=== PATIENT | female | born 1965 | race Caucasian/White ===

== ENCOUNTER 2017-06-11 06:40 | Day surgery (SDC) | payer BC ==
[2017-06-06 12:21] VITALS: BMI 21.9
[~2017-06-11 06:40] MED LIST: HEPARIN SODIUM,PORCINE 5,000 UNIT/ML 1 ML VIAL SQ ONE; HYDROmorphone 0.5 MG/0.5 ML SYRINGE IVP PRN; ONDANSETRON 4 MG/2 ML VIAL IVP ONE; SCOPOLAMINE 1.5MG/72HR PATCH TRANSDERM ONE; ceFAZolin 2 GM in SODIUM CHLORIDE 0.9% 100 ML IVPB ONE
[2017-06-11] MEDS: LIDOCAINE 1% 20 ML VIAL (10MG/ML) FOR IV START INTRADERMA PRN ×2 (07:25→07:30)
[2017-06-11] MEDS: LACTATED RINGERS 1,000 ML IV SCH (07:30)
--- NOTE | 2017-06-11 08:03 | P.GSHP ---
History of Present Illness H&P Date: 06/11/17 Chief Complaint: Right inguinal hernia This is a 51-year-old female who's developed a tender mass in the right groin. She presents today for laparoscopic robotic-assisted repair of right inguinal hernia. Past Medical History Past Medical History: No Reported History Additional Past Medical History / Comment(s): SEASONAL ALLERGIES., RIGHT INGUINAL HERNIA. History of Any Multi-Drug Resistant Organisms: None Reported Past Surgical History: Tubal Ligation, Uterine Ablation Additional Past Surgical History / Comment(s): BONE SPUR LEFT HAND, LEFT INGUINAL HERNIA (03/26/16) Past Anesthesia/Blood Transfusion Reactions: No Reported Reaction, Family History of Problems w/ Anesthesia Additional Past Anesthesia/Blood Transfusion Reaction / Comment(s): MOTHER & SISTER=PONV Smoking Status: Current every day smoker - Past Family History Father Family Medical History: Cancer, Deep Vein Thrombosis (DVT) Additional Family Medical History / Comment(s): THORACIC CANCER Medications and Allergies Home Medications Medication Instructions Recorded Confirmed Type No Known Home Medications [No 05/19/17 06/11/17 History Known Home Medications] Allergies Allergy/AdvReac Type Severity Reaction Status Date / Time cortisone Allergy Unknown Swelling Verified 06/11/17 07:01 Surgical - Exam Vital Signs Temp Pulse Resp BP Pulse Ox 97.8 F 79 16 122/72 99 06/11/17 06:59 06/11/17 06:59 06/11/17 06:59 06/11/17 06:59 06/11/17 06:59 - General well developed, no distress - Eyes PERRL - ENT normal pinna - Neck no masses - Respiratory normal expansion - Cardiovascular Rhythm: regular - Abdomen Abdomen: soft, non tender Hernia: inguinal (Reducible right inguinal hernia) Assessment and Plan Plan: Right inguinal hernia. We'll perform laparoscopic robotic system repair.
[2017-06-11] MEDS ORDERED: ALBUTEROL INHALER 60 PUFF/8 GM INHALER INHALATION ONE (08:09)
[2017-06-11] MEDS ORDERED: SUCCINYLCHOLINE CHLORIDE 100 MG/5 ML SYR IV ONE (08:09)
[2017-06-11] MEDS ORDERED: NEOSTIGMINE 1 MG/ML 10 ML VIAL ONE (08:09)
[2017-06-11] MEDS ORDERED: fentaNYL (PF) 50 MCG/ML 2 ML AMP ONE (08:09)
[2017-06-11] MEDS ORDERED: ROCURONIUM BROMIDE 10 MG/ML 10 ML VIAL IV ONE (08:09)
[2017-06-11] MEDS ORDERED: HYDROmorphone (PF) 1 MG/ML ONE (08:09)
[2017-06-11] MEDS ORDERED: GLYCOPYRROLATE 0.2 MG/ML 2 ML VIAL ONE (08:09)
[2017-06-11] MEDS ORDERED: MIDAZOLAM 2 MG/2 ML VIAL ONE (08:09)
[2017-06-11] MEDS ORDERED: LIDOCAINE 1% INJ 10MG/ML (20 ML MDV) ONE (08:09)
[2017-06-11] MEDS ORDERED: PROPOFOL 10 MG/ML 20 ML VIAL IV ONE (08:09)
[2017-06-11] MEDS ORDERED: BUPIVACAINE (PF) 0.25% 30 ML VIAL SQ ONE (08:44)
[2017-06-11] MEDS ORDERED: LIDOCAINE 2%-EPI 1:100,000 20 ML VIAL SQ ONE (08:44)
[2017-06-11 09:42] VITALS: TEMP 97.2
[2017-06-11] MEDS ORDERED: LACTATED RINGERS 1,000 ML IV ONE (10:56)
[2017-06-11] MEDS ORDERED: HYDROcodone/APAP 7.5-325MG 1 EACH TAB PO ONE (11:30)
[2017-06-11 11:58] VITALS: RESP 16
[2017-06-11 14:47] VITALS: BP 123/70; PULSE 61
--- NOTE | 2017-06-16 16:51 | P.OP ---
Date of Procedure: 06/11/17 Preoperative Diagnosis: Right inguinal hernia Postoperative Diagnosis: Right inguinal hernia Recurrent left inguinal hernia Procedure(s) Performed: Laparoscopic robotic-assisted repair of right inguinal hernia Laparoscopic robotic-assisted repair of recurrent left inguinal hernia Anesthesia: ZABRINA Surgeon: Candido Brown Estimated Blood Loss (ml): 5 Pathology: none sent Condition: stable Disposition: PACU Description of Procedure: The patient's placed on the operating table in the supine position. The patient received general anesthesia. The patient's abdomen was prepped and draped in usual sterile fashion. The skin was anesthetized 1% local Xylocaine at the incision sites. Using an 11 blade a skin incision was made at the umbilicus. The fascia was grasped with a Challenge and then the peritoneal cavity was entered with the Veress needle. Position of the Veress needle was confirmed with a positive drop test. After adequate insufflation a 5 mm trocar was placed into the peritoneal cavity. The Laparoscope was placed the peritoneal cavity. And a robotic 8 mm trocar was placed in the right lateral position and then another 8 mm robotic trochars placed in the left lateral position. The original 5 mm trocar was exchanged for a 12 mm trocar. The patient was placed in reverse Trendelenburg and then the patient was docked to the robot. The patient had a right inguinal hernia. The left side was examined there appeared to be a small recurrent left inguinal hernia. Next the peritoneum over top of the right hernia was incised and then using blunt and sharp dissection and electrocautery the hernia sac was dissected free from the floor of the inguinal canal. The hernia sac was completely reduced into the peritoneal cavity. And then using the Pro lead scientist mesh the hernia was repaired. The peritoneum was then sutured with 20V lock suture. The left recurrent inguinal hernia was repaired in identical fashion. The patient was then undocked the robot. The needle was withdrawn from the peritoneal cavity. The umbilical trocar site was closed with 0 Ethibond suture. The skin was closed interrupted 3-0 Monocryl suture. Dermabond dressing was applied. Patient was sent to recovery in stable condition.
== END 2017-06-11 15:17 | disposition home or self-care (01) ==
LOC: OR 06:40
PROVIDERS: ATTEND Surgery
DX: K40.91 Unilateral inguinal hernia, without obstruction or gangrene, recurrent (principal); F17.200 Nicotine dependence, unspecified, uncomplicated; Z88.8 Allergy status to other drugs, medicaments and biological substances
CPT/HCPCS: 49650; 49651; S2900

== ENCOUNTER → 2017-06-20 | Outpatient (CLI) | payer BC | END | disposition home or self-care (01) | LOC: MMGSC 16:49 | PROVIDERS: ATTEND Family Medicine | DX: R30.0 Dysuria (principal); M54.9 Dorsalgia, unspecified | CPT/HCPCS: 87086 ==

== ENCOUNTER → 2017-10-09 | Outpatient (CLI) | payer BC ==
[2017-10-09 18:40] LABS: ALT 21 U/L (9-52); AST 21 U/L (14-36); Albumin 4.1 g/dL (3.5-5.0); Alkaline Phosphatase 91 U/L (38-126); Anion Gap 9 mmol/L; Blood Urea Nitrogen 16 mg/dL (7-17); Calcium 9.3 mg/dL (8.4-10.2); Carbon Dioxide 27 mmol/L (22-30); Chloride 106 mmol/L (98-107); Cholesterol 236 mg/dL (<200); Glucose 101 mg/dL (74-99); HDL Cholesterol 55 mg/dL (40-60); LDL Cholesterol,Calculated 143 mg/dL (0-99); Sodium 142 mmol/L (137-145); Total Bilirubin 0.2 mg/dL (0.2-1.3); Total Protein 6.8 g/dL (6.3-8.2); Triglycerides 189 mg/dL (<150)
[2017-10-09 18:41] LABS: Basophils # (A) 0.1 k/uL (0-0.2); Basophils % (A) 1 %; Eosinophils # (A) 0.2 k/uL (0-0.7); Eosinophils % (A) 2 %; HCT 43.6 % (34.0-46.0); Lymphocytes # (A) 3.1 k/uL (1.0-4.8); Lymphocytes % (A) 36 %; MCH 29.8 pg (25.0-35.0); MCHC 32.1 g/dL (31.0-37.0); MCV 92.7 fL (80.0-100.0); Mean Platelet Volume 7.4; Monocytes # (A) 0.4 k/uL (0-1.0); Monocytes % (A) 5 %; Neutrophils # (A) 4.6 k/uL (1.3-7.7); Neutrophils % (A) 54 %; Platelet Count 283 k/uL (150-450); RDW 12.5 % (11.5-15.5); WBC 8.6 k/uL (3.8-10.6)
[2017-10-09 18:56] LABS: T4, Free (Free Thyroxine) 0.79 ng/dL (0.78-2.19)
== END | disposition home or self-care (01) ==
LOC: MMGSC 16:51
PROVIDERS: ATTEND Family Medicine
DX: Z00.00 Encounter for general adult medical examination without abnormal findings (principal)
CPT/HCPCS: 36415; 80053; 80061; 84439; 84443; 85025

== ENCOUNTER 2019-07-22 21:32 | Emergency (ER) | payer BC, OTHER ==
[2019-07-22 21:40] VITALS: TEMP 98
[2019-07-22 22:09] LABS: Basophils # (A) 0.1 k/uL (0-0.2); Basophils % (A) 2 %; Eosinophils # (A) 0.1 k/uL (0-0.7); Eosinophils % (A) 1 %; HCT 40.3 % (34.0-46.0); HGB 12.5 gm/dL (11.4-16.0); Lymphocytes # (A) 2.8 k/uL (1.0-4.8); Lymphocytes % (A) 30 %; MCH 28.6 pg (25.0-35.0); MCV 92.2 fL (80.0-100.0); Mean Platelet Volume 6.6; Monocytes # (A) 0.4 k/uL (0-1.0); Monocytes % (A) 5 %; Neutrophils # (A) 5.6 k/uL (1.3-7.7); Neutrophils % (A) 62 %; Platelet Count 266 k/uL (150-450); RBC 4.37 m/uL (3.80-5.40); RDW 12.8 % (11.5-15.5); WBC 9.1 k/uL (3.8-10.6)
[2019-07-22 22:11] LABS: ALT 34 U/L (9-52); AST 41 U/L (14-36); African American GFR (CKD) >90 (>60 ml/min/1.73 sqM); Albumin 3.5 g/dL (3.5-5.0); Alcohol <10 mg/dL; Alkaline Phosphatase 66 U/L (38-126); Anion Gap 4 mmol/L; Blood Urea Nitrogen 12 mg/dL (7-17); Calcium 8.2 mg/dL (8.4-10.2); Carbon Dioxide 25 mmol/L (22-30); Chloride 110 mmol/L (98-107); Glucose 88 mg/dL (74-99); Potassium 3.8 mmol/L (3.5-5.1); Sodium 139 mmol/L (137-145); Total Bilirubin 0.3 mg/dL (0.2-1.3); Total Protein 6.3 g/dL (6.3-8.2)
[2019-07-22 22:17] LABS: INR 0.9 (<1.2); Partial Thromboplastin Time 22.4 sec (22.0-30.0); Prothrombin Time 9.8 sec (9.0-12.0)
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
[2019-07-22] MEDS ORDERED: KETOROLAC 30 MG/ML 1 ML VIAL IVP ONE (22:48)
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
[2019-07-22 23:00] VITALS: BP 116/74; PULSE 77; RESP 18
--- NOTE | 2019-07-22 23:02 | XR ---
EXAMINATION TYPE: XR pelvis AP view DATE OF EXAM: 07/22/2019 COMPARISON: NONE HISTORY: Pain TECHNIQUE: Single view FINDINGS: Pelvic ring is intact. Proximal femurs and hip joints are intact. There is contrast in the urinary bladder. Sacroiliac joints appear intact. There is no evidence of a fracture. IMPRESSION: Normal pelvis.
--- NOTE | 2019-07-22 23:05 | XR ---
EXAMINATION TYPE: XR chest 1V portable DATE OF EXAM: 07/22/2019 COMPARISON: None HISTORY: Chest pain TECHNIQUE: Single frontal view of the chest is obtained. FINDINGS: There is coarsening of the pulmonary interstitial markings. There is mild emphysema in the upper lung cha. Heart size is normal. There are no hilar masses. There is no pneumothorax. Bony t horax is intact. IMPRESSION: Pulmonary emphysema. Mild pulmonary fibrosis. No evidence of traumatic injury.
[2019-07-22 23:35] LABS: Amorphous Sediment,Urine Occasional /hpf; Appearance,Urine Cloudy (Clear); Bilirubin,Urine Negative (Negative); Blood,Urine Negative (Negative); Color,Urine Yellow; Glucose,Urine (UA) Negative (Negative); Hyaline Casts,Urine 1 /lpf (0-2); Ketones,Urine Negative (Negative); Leukocyte Esterase,Urine Negative (Negative); Mucus,Urine Rare /hpf; Nitrite,Urine Negative (Negative); PH, Urine 7.5 (5.0-8.0); Protein,Urine Trace (Negative); RBC,Urine 2 /hpf (0-5); Specific Gravity,Urine 1.043 (1.001-1.035); Squamous Epithelial Cell,Urine 1 /hpf (0-4); Urobilinogen,Urine <2.0 mg/dL (<2.0); WBC,Urine 2 /hpf (0-5)
[2019-07-22 23:43] LABS: Amphetamine Screen,Urine Detected (NotDetected); Barbiturate Screen,Urine Not Detected (NotDetected); Benzodiazepines Screen,Urine Not Detected (NotDetected); Cocaine Screen,Urine Not Detected (NotDetected); Methadone Screen, Urine Not Detected (NotDetected); Opiate Screen,Urine Not Detected (NotDetected); Oxycodone Screen, Urine Not Detected (NotDetected); Phencyclidine Screen,Urine Not Detected (NotDetected); Tricyclic Antidepressant,Urine Not Detected (NotDetected); Urn Cannabinoid Scrn Detected (NotDetected)
== END 2019-07-22 23:38 | disposition home or self-care (01) ==
LOC: EC 21:32
DX: S80.212A Abrasion, left knee, initial encounter (principal); S80.211A Abrasion, right knee, initial encounter; S80.812A Abrasion, left lower leg, initial encounter; S80.811A Abrasion, right lower leg, initial encounter; R07.9 Chest pain, unspecified; F17.200 Nicotine dependence, unspecified, uncomplicated; Z88.8 Allergy status to other drugs, medicaments and biological substances; V43.61XA Car passenger injured in collision with sport utility vehicle in traffic accident, initial encounter; Y92.89 Other specified places as the place of occurrence of the external cause
CPT/HCPCS: 36415; 93005; 86900; 86901; 80053; 84484; 85025; 85610; 85730; 86850; 81001; 80306; 80320; 73560; 72170; 71045; 72125; 70450; 71260; 74177; 99285; 96374; J1885; Q9967

== ENCOUNTER 2019-07-24 07:25 | Emergency (ER) | payer BC, OTHER ==
[2019-07-24] MEDS ORDERED: SODIUM CHLORIDE 0.9% 1,000 ML IV STA (07:32)
[2019-07-24] MEDS ORDERED: KETOROLAC 30 MG/ML 1 ML VIAL IVP STA (07:32)
[2019-07-24] MEDS ORDERED: IPRATROPIUM-ALBUTEROL 3 ML NEB INHALATION STA (07:33)
[2019-07-24] MEDS ORDERED: LORazepam 2 MG/ML INJ IV STA (07:39)
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
[2019-07-24 08:07] LABS: Basophils # (A) 0.2 k/uL (0-0.2); Basophils % (A) 3 %; Eosinophils # (A) 0.3 k/uL (0-0.7); Eosinophils % (A) 3 %; HCT 42.8 % (34.0-46.0); HGB 13.6 gm/dL (11.4-16.0); Lymphocytes # (A) 2.6 k/uL (1.0-4.8); Lymphocytes % (A) 29 %; MCH 29.2 pg (25.0-35.0); MCHC 31.7 g/dL (31.0-37.0); Mean Platelet Volume 6.4; Monocytes # (A) 0.5 k/uL (0-1.0); Monocytes % (A) 5 %; Neutrophils # (A) 5.4 k/uL (1.3-7.7); Neutrophils % (A) 60 %; Platelet Count 276 k/uL (150-450); RBC 4.65 m/uL (3.80-5.40); RDW 12.9 % (11.5-15.5)
[2019-07-24 08:22] LABS: ALT 31 U/L (9-52); AST 29 U/L (14-36); African American GFR (CKD) >90 (>60 ml/min/1.73 sqM); Albumin 3.7 g/dL (3.5-5.0); Alkaline Phosphatase 78 U/L (38-126); Anion Gap 6 mmol/L; Blood Urea Nitrogen 16 mg/dL (7-17); Calcium 9.2 mg/dL (8.4-10.2); Carbon Dioxide 25 mmol/L (22-30); Chloride 111 mmol/L (98-107); Creatine Kinase 108 U/L (30-135); Glucose 103 mg/dL (74-99); INR 0.8 (<1.2); Magnesium 1.9 mg/dL (1.6-2.3); Partial Thromboplastin Time 27.1 sec (22.0-30.0); Potassium 4.5 mmol/L (3.5-5.1); Prothrombin Time 9.4 sec (9.0-12.0); Sodium 142 mmol/L (137-145); Total Bilirubin 0.3 mg/dL (0.2-1.3); Total Protein 6.6 g/dL (6.3-8.2)
[2019-07-24 08:25] LABS: D-Dimer 0.96 mg/L FEU (<0.60)
--- NOTE | 2019-07-24 08:43 | XR ---
EXAMINATION TYPE: XR chest 2V DATE OF EXAM: 07/24/2019 HISTORY: Chest Pain. REFERENCE: Previous study dated 07/22/2019. FINDINGS: There is mild platelike atelectasis at both lung bases. The lungs are otherwise clear. Pleu ral space are clear. The heart is not enlarged. IMPRESSION: PLATELIKE ATELECTASIS, BOTH LUNG BASES.
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
[2019-07-24 10:44] VITALS: BP 116/70; PULSE 75; RESP 18; TEMP 97.3
== END 2019-07-24 09:52 | disposition home or self-care (01) ==
LOC: EC 07:25
DX: S22.32XA Fracture of one rib, left side, initial encounter for closed fracture (principal); M94.0 Chondrocostal junction syndrome [Tietze]; F17.200 Nicotine dependence, unspecified, uncomplicated; Z88.8 Allergy status to other drugs, medicaments and biological substances; V89.2XXA Person injured in unspecified motor-vehicle accident, traffic, initial encounter; Y92.410 Unspecified street and highway as the place of occurrence of the external cause
CPT/HCPCS: 36415; 94640; 93005; 85379; 83880; 80053; 82550; 83690; 83735; 84484; 85025; 85610; 85730; 71046; 71275; 99285; 96374; 96375; 96361 ×3; J2060; J1885; Q9967

== ENCOUNTER → 2020-03-17 | Outpatient (CLI) | payer OTHER ==
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
== END | disposition home or self-care (01) ==
LOC: RADMRIMAIN 11:38
PROVIDERS: ATTEND Orthopaedic Surgery
DX: S82.001A Unspecified fracture of right patella, initial encounter for closed fracture (principal)

== ENCOUNTER 2022-02-06 18:51 | Emergency (ER) | payer OTHER ==
[2022-02-06 20:18] VITALS: BP 132/77; PULSE 77; RESP 18; TEMP 98
--- NOTE | 2022-02-06 21:18 | ED ---
URI HPI - General Chief Complaint: Upper Respiratory Infection Stated Complaint: Covid+/antibodies Time Seen by Provider: 02/06/22 20:56 Source: patient, RN notes reviewed Mode of arrival: ambulatory Limitations: no limitations - History of Present Illness Initial Comments: Patient comes in complaining of body aches, mild cough, nasal congestion, postnasal drainage suggested a. Patient tested positive for COVID-19 at her physician's office. Her physician suggested she come here for the monoclonal antibody. Patient is a cigarette smoker. No other significant past medical history. Patient also complaining of fatigue. Minimal diminished appetite. Able to eat and drink normally. No vomiting. No headache, no changes in vision or hearing, no sore throat or difficulty with speech, no neck pain, no chest pain or shortness of breath, no abdominal pain, no nausea or vomiting, no changes in urination or bowel movements, no numbness or tingling, no extremity pain, no skin rashes or lesions. MD Complaint: fever, cough, nasal congestion - Related Data Previous Rx's Medication Instructions Recorded Ibuprofen [Motrin] 400 mg PO Q4H #30 tab 07/22/19 methocarbamoL [Robaxin] 500 mg PO QID #30 tab 07/22/19 Cyclobenzaprine [Flexeril] 10 mg PO TID #14 tab 07/24/19 Ibuprofen 800 mg PO Q6HR PRN #20 tablet 07/24/19 Albuterol Sulfate [Albuterol 2 puff PO Q6H #8.5 gm 02/06/22 Sulfate Hfa] Allergies Allergy/AdvReac Type Severity Reaction Status Date / Time cortisone Allergy Unknown Swelling Verified 02/06/22 20:17 Review of Systems ROS Statement: Those systems with pertinent positive or pertinent negative responses have been documented in the HPI. ROS Other: All systems not noted in ROS Statement are negative. Past Medical History Past Medical History: No Reported History Additional Past Medical History / Comment(s): SEASONAL ALLERGIES., RIGHT and Left INGUINAL HERNIA. History of Any Multi-Drug Resistant Organisms: None Reported Past Surgical History: Tubal Ligation, Uterine Ablation Additional Past Surgical History / Comment(s): BONE SPUR LEFT HAND, LEFT INGUINAL HERNIA (03/26/16) Past Anesthesia/Blood Transfusion Reactions: No Reported Reaction, Family Histor y of Problems w/ Anesthesia Additional Past Anesthesia/Blood Transfusion Reaction / Comment(s): MOTHER & SISTER=PONV Past Psychological History: No Psychological Hx Reported Past Alcohol Use History: None Reported Past Drug Use History: Marijuana - Past Family History Father Family Medical History: Cancer, Deep Vein Thrombosis (DVT) Additional Family Medical History / Comment(s): THORACIC CANCER General Exam Limitations: no limitations General appearance: alert, in no apparent distress Head exam: Present: atraumatic, normocephalic, normal inspection Eye exam: Present: normal appearance, PERRL, EOMI. Absent: scleral icterus, conjunctival injection, periorbital swelling ENT exam: Present: normal exam, normal oropharynx, mucous membranes dry, mucous membranes moist, normal external ear exam Neck exam: Present: normal inspection, full ROM. Absent: tenderness, meningismus, lymphadenopathy Respiratory exam: Present: normal lung sounds bilaterally. Absent: respiratory distress, wheezes, rales, rhonchi, stridor, chest wall tenderness, accessory muscle use Cardiovascular Exam: Present: regular rate, normal rhythm, normal heart sounds. Absent: systolic murmur, diastolic murmur, rubs, gallop, clicks GI/Abdominal exam: Present: soft, normal bowel sounds. Absent: distended, tenderness, guarding, rebound, rigid Extremities exam: Present: normal inspection, full ROM, normal capillary refill. Absent: tenderness, pedal edema, joint swelling, calf tenderness Back exam: Present: normal inspection Neurological exam: Present: alert, oriented X3, CN II-XII intact Psychiatric exam: Present: normal affect, normal mood Skin exam: Present: warm, dry, intact, normal color. Absent: rash Course Vital Signs 02/06/22 20:13 Temperature 98 F Pulse Rate 77 Respiratory 18 Rate Blood Pressure 132/77 O2 Sat by Pulse 96 Oximetry Medical Decision Making - Medical Decision Making Patient qualified for the monoclonal antibody by BMI. Patient is a cigarette smoker. I did discuss smoking cessation with the patient. Patient received the antibiotic. I did give 1 dose of prednisone but then noted that the patient had a A bands reaction to cortisone. We'll hold any further corticosteroids. Apparently there was swelling. We will treat with albuterol inhaler. Patient was told to return to the ER for any signs or symptoms worsen. Told to return immediately if any other problems arise. All questions answered. Treatment plan discussed. Patient in agreement Every effort has been made to ensure accuracy of this dictation. However, due to the limitations of electronic medical records and dictation devices, errors in charting still occur. SupervisorDr. Jordan - Lab Data Lab Results 02/06/22 Range/Units 20:18 Coronavirus (PCR) Detected A (Not Detectd) Disposition Clinical Impression: COVID-19, Cigarette smoker Disposition: HOME SELF-CARE Condition: Good Instructions (If sedation given, give patient instructions): Coronavirus Disease 2019 (COVID-19), How to Stop Smoking (ED) Additional Instructions: SELF QUARANTINE DISCHARGE: As you are at risk for symptoms due to coronavirus, please stay home and stay away from others as much as possible. Please maintain social distance of 6 feet if possible. You should not return to work until at least 3 days (72 hours) have passed since recovery of symptoms. This defined as resolution of fever without the use of fever reducing medicines and improvement in respiratory symptoms (e.g,, cough, shortness of breath) Isolation can end at least 5 days after symptom onset and after fever ends for 24 hours (without the use of fever-reducing medication) and symptoms are improving, if these people can continue to properly wear a well-fitted mask around others for 5 more days after the 5-day isolation period. If you're still having symptoms at the end of 5 day period, isolate for an additional 5 days. More information about what to do if you are sick can be found on the CDC website at https://www.cdc.gov/coronavirus/2019-ncov/hr-jnc-ujk-sick/recrq-hbtl-xmzo.html Expect the symptoms to last for 7-14 days from onset. Use acetaminophen (Tylenol) as needed for discomfort. You can take a maximum of 1 gram every 6 hours for discomfort, with your total dose in 24 hours not exceeding 4 grams. Be sure to maintain hydration. Drink continuous water and/or items high in vitamin C, such as orange juice and/or lemonade. Unless you have high blood pressure, you may consider Sudafed (which is [id number]) for nasal congestion. I would suggest that a short acting Sudafed rather than the 24 hour Sudafed. For a cough you may take Mucinex or Robitussin. Also consider the use of Vicks Vapor Rub or your chest when you sleep. Use a humidifier that is cleaned frequently, in the bedroom at night. For Nausea /Vomiting/Diarrhea associated with your Illness: o Small frequent sips of room temperature liquids. o Diet: [employer] - If you are still experiencing discomfort and/or nausea please slowly advancing your diet using the BRAT Diet = bananas, rice, apples/apple sauce, toast. o With diarrhea avoid any dairy for 48 hours after symptoms resolved. o Continue with activity as tolerated. If your symptoms do get worse and you believe that the upper respiratory infection has developed into something else, such as pneumonia or severe dehydration, please return to the emergency department or follow-up with your primary care. But expect to be symptomatic for the days as indicated above Prescriptions: Albuterol Sulfate [Albuterol Sulfate Hfa] 2 puff PO Q6H #8.5 gm Is patient prescribed a controlled substance at d/c from ED?: No Referrals: Krystle Sampson MD [Primary Care Provider] - 1-2 days Time of Disposition: 21:51
[2022-02-06] MEDS ORDERED: BEBTELOVIMAB (EUA) 175 MG/2 ML VIAL IV ONE (21:30)
[2022-02-06] MEDS ORDERED: predniSONE 20 MG TAB PO STA (21:59)
== END 2022-02-06 23:03 | disposition home or self-care (01) ==
LOC: EC 18:51
DX: U07.1 COVID-19 (principal); R05.9 Cough, unspecified; R50.9 Fever, unspecified
CPT/HCPCS: 87635; J7512; Q0222

== ENCOUNTER 2025-02-19 18:43 | Inpatient (IN) | payer OTHER ==
[2025-02-19] MEDS ORDERED: NITROGLYCERIN SL TABS 0.4 MG TAB SUBLINGUAL PRN (18:47)
--- NOTE | 2025-02-19 18:47 | ED ---
Chest Pain HPI - General Stated Complaint: NSTEMI Time Seen by Provider: 02/19/25 18:44 Source: old records reviewed Mode of arrival: EMS Limitations: no limitations - History of Present Illness Initial Comments: This is a 59-year-old female to the ER for evaluation of chest pain chest pain dizziness diaphoresis and shortness of breath when she stood up she fell forward hitting her head and presents to the ER with minimal bleeding and abrasion to nose positive head injury, acute ST elevated MD MD Complaint: chest pain, other (Dizziness diaphoresis) -: days(s) Onset: during rest, during exertion Pain Location: substernal Pain Radiation: none Severity: moderate, severe Severity scale (1-10): 7 Quality: tightness, heaviness Consistency: constant Improves With: nothing Anginal Symptoms: diaphoresis, dyspnea, sense of impending doom Other Symptoms: palpitations Treatments Prior to Arrival: none - Related Data Home Medications Medication Instructions Recorded Confirmed Gabapentin [Neurontin] 300 mg PO TID PRN 02/20/25 02/21/25 HYDROcodone/APAP 5-325MG [Miranda 1 tab PO BID PRN 02/20/25 02/21/25 5-325] Previous Rx's Medication Instructions Recorded Aspirin 81 mg PO DAILY tab 02/22/25 Atorvastatin [Lipitor] 80 mg PO DAILY #90 tab 02/22/25 Losartan [Cozaar] 25 mg PO DAILY #90 tab 02/22/25 Nitroglycerin Sl Tabs [Nitrostat] 0.4 mg SUBLINGUAL Q5M PRN #25 tab 02/22/25 Ticagrelor [Brilinta] 90 mg PO BID #180 tab 02/22/25 Allergies Allergy/AdvReac Type Severity Reaction Status Date / Time cortisone Allergy Unknown Swelling Verified 02/20/25 11:43 Review of Systems ROS Statement: Those systems with pertinent positive or pertinent negative responses have been documented in the HPI. ROS Other: All systems not noted in ROS Statement are negative. EKG Findings - EKG Comments: EKG Findings:: EKG sinus bradycardia 53 OH 117 QRS 86 QTc 404 - EKG Results: EKG: interpreted by CECILE Past Medical History Past Medical History: No Reported History Additional Past Medical History / Comment(s): SEASONAL ALLERGIES., RIGHT and Left INGUINAL HERNIA. History of Any Multi-Drug Resistant Organisms: None Reported Past Surgical History: Tubal Ligation, Uterine Ablation Additional Past Surgical History / Comment(s): BONE SPUR LEFT HAND, LEFT INGUINAL HERNIA (03/26/16) Past Anesthesia/Blood Transfusion Reactions: No Reported Reaction, Family History of Problems w/ Anesthesia Additional Past Anesthesia/Blood Transfusion Reaction / Comment(s): MOTHER & SISTER=PONV Past Psychological History: No Psychological Hx Reported Past Alcohol Use History: None Reported Past Drug Use History: Marijuana - Past Family History Father Family Medical History: Cancer, Deep Vein Thrombosis (DVT) Additional Family Medical History / Comment(s): THORACIC CANCER General Exam General appearance: alert, in no apparent distress Head exam: Present: atraumatic, normocephalic, normal inspection Eye exam: Present: normal appearance, PERRL, EOMI. Absent: scleral icterus, conjunctival injection, periorbital swelling ENT exam: Present: normal exam, mucous membranes moist Neck exam: Present: normal inspection. Absent: tenderness, meningismus, lymphadenopathy Respiratory exam: Present: normal lung sounds bilaterally. Absent: respiratory distress, wheezes, rales, rhonchi, stridor Cardiovascular Exam: Present: regular rate, normal rhythm, normal heart sounds. Absent: systolic murmur, diastolic murmur, rubs, gallop, clicks GI/Abdominal exam: Present: soft, normal bowel sounds. Absent: distended, tenderness, guarding, rebound, rigid Extremities exam: Present: normal inspection, full ROM, normal capillary refill. Absent: tenderness, pedal edema, joint swelling, calf tenderness Back exam: Present: normal inspection Neurological exam: Present: alert, oriented X3, CN II-XII intact Psychiatric exam: Present: normal affect, normal mood Skin exam: Present: warm, dry, intact, normal color. Absent: rash Course Vital Signs 02/19/25 02/19/25 02/19/25 18:45 18:48 18:50 Temperature 98 F Pulse Rate 83 48 L Pulse Rate [ 56 L Flight Control Manager ] Respiratory 20 20 Rate Blood Pressure 95/65 100/60 O2 Sat by Pulse 98 96 Oximetry 02/19/25 19:08 Temperature Pulse Rate 57 L Pulse Rate [ Flight Control Manager ] Respiratory 20 Rate Blood Pressure 100/60 O2 Sat by Pulse 98 Oximetry - Reevaluation(s) Reevaluation #1: 02/19/25 19:46 Medical records reviewed 02/19/25 19:[address] elevated MD paged prehospital Reevaluation #2: 02/19/25 19:47 Still with chest pain here in the ER Reevaluation #3: 02/19/25 19:47 Patient will need to get CT scan brain for head injury prior to heparin Reevaluation #4: Was pt. sent in by a medical professional or institution (, [facility], [facility], urgent care, hospital, or residential...) When possible be specific @ -no Did you speak to anyone other than the patient for history (EMS, parent, family, police, friend...)? What history was obtained from this source @ -no Did you review nursing and triage notes (agree or disagree)? Why? @ -agree Are old charts reviewed (outside hosp., previous admission, EMS record, old EKG, old radiological studies, urgent care reports/EKG's, residential records)? Report findings @ -yes Differential Diagnosis (chest pain, altered mental status, abdominal pain women, abdominal pain men, vaginal bleeding, weakness, fever, dyspnea, syncope, headache, dizziness, GI bleed, back pain, seizure, CVA, palpatations, mental health, musculoskeletal)? @ -prior EKG interpreted by me (3pts min.). @ -yes X-rays interpreted by me (1pt min.). @ -yes negative for acute disease CT interpreted by me (1pt min.). @ -Yes negative for acute disease U/S interpreted by me (1pt. min.). @ -no What testing was considered but not performed or refused? (CT, X-rays, U/S, labs)? Why? @ -none What meds were considered but not given or refused? Why? @ -none Did you discuss the management of the patient with other professionals (professionals i.e. [facility], [facility], lab, RT, psych nurse, executive secretary social welfare, bird keeper, teacher, technology officer, window caser)? Give summary @ -no Was smoking cessation discussed for >3mins.? @ -no Was critical care preformed (if so, how long)? @ -yes31 Were there social determinants of health that impacted care today? How? (Homelessness, low income, unemployed, alcoholism, drug addiction, transportation, low edu. Level, literacy, decrease access to med. care, correction, rehab)? @ -none Was there de-escalation of care discussed even if they declined (Discuss DNR or withdrawal of care, Hospice)? DNR status @ -no What co-morbidities impacted this encounter? (DM, HTN, Smoking, COPD, CAD, Cancer, CVA, ARF, Chemo, Hep., AIDS, mental health diagnosis, sleep apnea, morbid obesity)? @ -none Was patient admitted / discharged? Hospital course, mention meds given and route, prescriptions, significant lab abnormalities, going to OR and other pertinent info. @ - 59 female will be admitted for acute ST elevated MD with near syncopal event and head injury Admitted Undiagnosed new problem with uncertain prognosis? @ -no Drug Therapy requiring intensive monitoring for toxicity (Heparin, Nitro, Insulin, Cardizem)? @ -no Were any procedures done? @ -no Diagnosis/symptom? @ -Syncope, STEMI Acute, or Chronic, or Acute on Chronic? @ -Acute Uncomplicated (without systemic symptoms) or Complicated (systemic symptoms)? @ -Complicated Side effects of treatment? @ -no Exacerbation, Progression, or Severe Exacerbation? @ -exacerbation Poses a threat to life or bodily function? How? (Chest pain, USA, MD, pneumonia, PE, COPD, DKA, ARF, appy, cholecystitis, CVA, Diverticulitis, Homicidal, Suicidal, threat to staff... and all critical care pts) @ -yes acute ST elevated MD Reevaluation #5: Differential Chest Pain: Stable Angina, Unstable Angina, STEMI, NSTEMI Aortic Dissection, Pneumothorax, Musculoskeletal, Esophageal Spasm GERD, Cholecystitis, Pancreatitis, Zoster, this is not meant to be an all-inclusive list. - Consultations Consultation #1: Spoke with cardiology aware of ST elevated MD Consultation #2: Spoke with sound who agrees to admit this patient Chest Pain MDM - MDM 59 female will be admitted for acute ST elevated MD with near syncopal event and head injury, CT brain C-spine facial bones negative for acute traumatic injury. Critical Care Time Critical Care Time: Yes Total Critical Care Time: 31 Disposition Clinical Impression: Chest pain, ST elevation myocardial infarction (STEMI), Head injury, Near syncope, Syncope Disposition: ADMITTED IP TO THIS [facility] Condition: Critical Is patient prescribed a controlled substance at d/c from ED?: No Time of Disposition: 19:50
[2025-02-19] MEDS: ASPIRIN 81 MG PO STA (18:51)
[2025-02-19] MEDS: ATORVASTATIN 80 MG TAB PO SCH (18:59)
[2025-02-19 19:01] LABS: Basophils # (A) 0.13 10*3/uL (0.00-0.10); Eosinophils % (A) 1.5 %; HCT 38.5 % (37.2-46.3); HGB 13.1 g/dL (12.0-15.0); Lymphocytes % (A) 49.9 %; MCH 30.5 pg (27.0-32.0); MCV 89.7 fL (80.0-97.0); Mean Platelet Volume 9.6 fL (9.5-12.2); Monocytes # (A) 0.92 10*3/uL (0.20-1.00); Monocytes % (A) 6.9 %; Neutrophils # (A) 5.44 10*3/uL (1.80-7.70); Neutrophils % (A) 40.4 %; Platelet Count 350 10*3/uL (140-440); RBC 4.29 10*6/uL (4.10-5.20); RDW 12.4 % (11.5-14.5); WBC 13.43 10*3/uL (4.50-10.00)
--- NOTE | 2025-02-19 19:03 | XR ---
EXAMINATION TYPE: XR chest 1V portable DATE OF EXAM: 02/19/2025 6:53 PM COMPARISON: Chest radiographs from 07/24/2019 CLINICAL INDICATION: Female, 59 years old with history of chest pain; [facility] TECHNIQUE: XR chest 1V portable Frontal view of the chest. FINDINGS: Lungs/Pleura: Prominent interstitial lung markings are seen scattered throughout the lungs. No eviden ce of focal consolidation, pneumothorax or pleural effusion. Pulmonary vascularity: Unremarkable. Heart/mediastinum: Cardiomediastinal silhouette is unremarkable. Atherosclerotic calcifications are seen in the aorta. Musculoskeletal: No acute osseous pathology. Other findings: None Lines/Tubes: IMPRESSION: Interstitial prominence which could represent pulmonary edema versus fibrotic change. [facility], , 02/19/2025 7:00 PM
[2025-02-19] MEDS: SODIUM CHLORIDE 0.9% 500 ML 500 ML IV STA (19:06)
[2025-02-19] MEDS: MORPHINE SULFATE 4 MG/ML SYRINGE IVP STA (19:07)
[2025-02-19 19:12] LABS: INR 0.9 (<1.2); Partial Thromboplastin Time 23.3 sec (22.0-30.0); Prothrombin Time 10.2 sec (10.0-12.5)
[2025-02-19 19:13] LABS: ALT 18 U/L (4-34); AST 26 U/L (14-36); African American GFR (CKD) >90 (>60 ml/min/1.73 sqM); Albumin 3.9 g/dL (3.5-5.0); Alkaline Phosphatase 83 U/L (38-126); Anion Gap 7 mmol/L; Blood Urea Nitrogen 14 mg/dL (7-17); Calcium 9.8 mg/dL (8.4-10.2); Carbon Dioxide 27 mmol/L (22-30); Chloride 102 mmol/L (98-107); Glucose 111 mg/dL (74-99); Non-African American GFR(CKD) >90 (>60 ml/min/1.73 sqM); Potassium 3.8 mmol/L (3.5-5.1); Sodium 136 mmol/L (137-145); Total Bilirubin 0.3 mg/dL (0.2-1.3); Total Protein 6.4 g/dL (6.3-8.2)
[2025-02-19] MEDS: LIDOCAINE 1% INJ 10MG/ML (20 ML MDV) SQ ONE (19:20)
[2025-02-19] MEDS: VERAPAMIL SYRINGE (5 MG/10 ML) INTRAARTER ONE (19:25)
[2025-02-19] MEDS: HEPARIN SODIUM 1,000 UN/ML (10ML VL) IVP ONE ×2 (19:33→20:08)
[2025-02-19] MEDS: PHENYLEPHRINE-0.9% NACL SYG 1,000 MCG/10 ML SYRINGE IVP ONE (19:35)
[2025-02-19] MEDS: SODIUM CHLORIDE 0.9% IV ONE (19:35)
[2025-02-19] MEDS: NOREPINEPHRINE IV ONE (19:35)
[2025-02-19] MEDS: TICAGRELOR 90 MG TAB PO ONE (19:37)
[2025-02-19] MEDS: fentaNYL (PF) 50 MCG/1 ML VIAL IVP ONE (19:40)
[2025-02-19] MEDS: IV FLUID CONTINUATION 900 ML IV ONE (19:53)
--- NOTE | 2025-02-19 20:00 | CT ---
EXAMINATION TYPE: CT brain cspine wo con, CT facial bones wo con DATE OF EXAM: 02/19/2025 7:15 PM COMPARISON: None. CLINICAL INDICATION: Female, 59 years old with history of fall; STEMI, fall, pain TECHNIQUE: Brain: Multiple axial CT images of the brain were obtained without IV contrast. Cspine: Axial CT images from the skull base to the inferior aspect of T2 we obtained without intraven ous contrast. Coronal and sagittal reformatted images were also reviewed. Facial: Axial imaging of the facial structures with sagittal and coronal reformats. CT DLP: 895.3 (accession [id number]), 638.4 (accession [id number]) mGycm, Automated exposure control for dose reduction was used. FINDINGS: Brain: Extra-axial spaces: No abnormal extra-axial fluid collections. Ventricular system: Within normal limits Cerebral parenchyma: No acute intraparenchymal hemorrhage or mass effect. The thorpe-white junction is well differentiated. Cerebellum: Unremarkable. Mass effect: No evidence of midline shift. Intracranial vasculature: unremarkable Soft tissues: Normal. Calvarium/osseous structures: No depressed skull fracture. Paranasal sinuses and mastoid air cells: Hypoplastic right maxillary sinus. Scattered mucosal thicken ing present. Visualized orbits: Orbital contents are intact. Cervical spine: Fracture: None. Osseous structures: Multilevel degenerative disc disease changes with endplate spurring and disc oste ophyte complex's. There is fusion of the C2 and C3 vertebrae both the vertebral body and posterior el ements. Vertebral alignment: Within normal limits. Spinal canal/Neural Foramina: No evidence of significant spinal canal narrowing. No evidence for sign ificant neural foraminal stenosis. Neck soft tissues: Prevertebral soft tissues are within normal limits. Other: The airway is patent. Centrilobular emphysema changes are seen in the lung apices. Carotid bif urcation calcifications. Facial: There is a nasal bone deformity with overlying soft tissue swelling. There may be a couple im ages. There is a lucency through the nasal bone. Gas is seen within the deep vessels of the neck pres umably from IV access. The orbits and globes appear intact. No periorbital edema identified. IMPRESSION: 1. No acute intracranial process. 2. Soft tissue swelling over the nasal bone with suspected minimally displaced right nasal bone frac ture. 3. No evidence of cervical spine fracture. 4. Mild multilevel degenerative disc disease. 5. 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 Fallon on 02/19/2025 7:[address] Torin Posada. [facility], , 02/19/2025 7:58 PM
[2025-02-19] MEDS: HEPARIN SODIUM,PORCINE 10,000 UNIT in SODIUM CHLORIDE 0.9% 1,000 ML IRRIGATION ONE (20:01)
[2025-02-19] MEDS: HEPARIN SODIUM,PORCINE (1 ML) 2,500 UNIT in SODIUM CHLORIDE 0.9% 250 ML IRRIGATION ONE (20:01)
[2025-02-19] MEDS: IOPAMIDOL-370 100ML BTL IVP ONE (20:28)
[2025-02-19 20:43] LABS: Glucose,Whole Blood 127 mg/dL (70-110)
--- NOTE | 2025-02-19 21:00 | CONS ---
CONSULTATION CHIEF COMPLAINT: Chest pain. HISTORY OF PRESENT ILLNESS: A 59-year-old lady with no significant past medical history, who sees Dr. Linares on a regular basis, comes into hospital with acute inferior wall myocardial infarction. The patient developed sudden onset chest pain, dizziness and had near syncope at home and had a fall. She fell on her face and had epistaxis. I was called 5 minutes before when the EKG was transmitted by the [facility]. The track laborer was activated even before the patient arrived in the ER. I saw her for the first time in the track laborer and she is still having chest discomfort, continues to have ST-segment elevation and she is bradycardic and mildly hypertensive, does not seem to be short of breath. Her EKG reveals ST-segment elevation in the inferior leads. The plan is to perform emergent cardiac catheterization with a view to performing angioplasty. The patient had head injury and had a CT scan of the brain. The ER physician tells us there was no evidence of bleed. We are waiting on the Radiology interpretation. MEDICATIONS: She states none. ALLERGIES: None. FAMILY HISTORY: Negative for premature coronary artery disease. SOCIAL HISTORY: Significant for smoking. There is no history of EtOH abuse or drug abuse. She uses marijuana. REVIEW OF SYSTEMS: review of systems has been performed. Pertinents are as present in history of presenting illness. PHYSICAL EXAMINATION: VITAL SIGNS: Heart rate is 45 beats per minute, blood pressure is 88/62, respiratory rate is 18. NECK: There is no jugular venous distention. CHEST: Reveals good air entry bilaterally. HEART: Reveals first and second heart sounds. No gallop. No murmur. ABDOMEN: Soft. EXTREMITIES: Exam of extremities did not reveal any edema. Her neck is restrained with a collar. LABORATORY DATA: Pending at this time. ASSESSMENT: Acute inferior wall myocardial infarction. PLAN: The patient will undergo emergent cardiac catheterization and angioplasty of the right coronary artery. MMODL / IJN: [id number] /
--- NOTE | 2025-02-19 21:03 | CC ---
CARDIAC CATHETERIZATION REPORT INDICATION: Acute inferior wall myocardial infarction. PROCEDURE NOTE: After obtaining informed consent, left heart catheterization and coronary angiogram were performed via the right radial artery using standard Fabio catheters. The patient was hemodynamically unstable, was hypotensive and had been started on Pernell- Synephrine and Levophed drip. PROCEDURE NOTE: The right radial artery access was obtained using Seldinger technique. Dr. Fallon had obtained vascular access under ultrasonic guidance. A 6-Kazakh sheath was placed in catheters and wires were floated into the ascending aorta under fluoroscopic guidance. FINDINGS: 1. Hemodynamics: Left ventricular end-diastolic pressure 4-6 mm. There is no significant gradient across the aortic valve. 2. Left ventriculogram: Left ventriculogram is not performed. 3. Angiographic Data: a.Right Coronary Artery: Right coronary artery is totally occluded in its proximal portion. b.Left Main Coronary Artery: Left main coronary artery appears calcified, but is free of significant stenosis. Divides into left anterior descending coronary artery and left circumflex coronary artery. LAD shows mild nonobstructive disease as does the circumflex coronary artery. There are [id number] collaterals to the distal RCA. CONCLUSIONS: 1. Cardiogenic shock. 2. Acute occlusion of the right coronary arteries. PLAN: The patient will undergo emergent angioplasty by Dr. Fallon, the on-call peoples[employer] hcm developer. The patient on her presentation had a syncope and fall and had a head injury, had a CT scan of the brain, which per ER physician's interpretation, did not reveal any bleed. MMODL / IJN: [id number] /
[2025-02-19] MEDS: HEPARIN SODIUM 1,000 UN/ML (10ML VL) IV ONE (21:08)
[2025-02-19] MEDS: HEPARIN SOD,PORK IN 0.45% NACL 25,000 UNIT in 0.45% NACL 1 250ML.BAG IV SCH (21:08)
[2025-02-19] MEDS ORDERED: ATROPINE SULFATE 0.1 MG/ML 10ML SYRINGE IV PRN (21:18)
[2025-02-19] MEDS ORDERED: RX INFO: IV CONTRAST WAS GIVEN 1 EACH MISC MISCELLANE PRN (21:18)
[2025-02-19] MEDS ORDERED: ZOLPIDEM 5 MG TAB PO PRN (21:18)
[2025-02-19] MEDS: NICOTINE 21MG/24HR PATCH TRANSDERM SCH (21:40)
[2025-02-19] MEDS: METOPROLOL TARTRATE 25 MG TAB PO SCH (21:40)
[2025-02-19] MEDS: SODIUM CHLORIDE 0.9% 1,000 ML in EMPTY BAG 1 BAG IV SCH (21:40)
--- NOTE | 2025-02-19 22:53 | P.PRCINT ---
Percutaneous Coronary Int. - Percutaneous Coronary Intervention Percutaneous Coronary Intervention: PROCEDURES PERFORMED: Right coronary angiography, PCI RCA with a 2.75 x 23mm XIence TERE, post dilated with a 3.5mm NC balloon, Penumbra aspiration thrombectomy, IVUS RCA INDICATION: Inferior STEMI, NYHA class 4 symptoms CONSENT:I have discussed the risks, benefits and alternative therapies for the above-mentioned procedure and for both sedation/analgesia as well as necessary blood product administration, if indicated, as they pertain to this patient. The patient has indicated understanding and acceptance of the risks and procedures discussed. PROCEDURE: After the risks, benefits and alternatives of the above mentioned procedure explained in detail with the patient, informed consent was obtained. Patient was taken to the catheterization lab and prepped and draped in usual fashion. A 6-[place] sheath had been placed in the right radial artery . Patient was hypotensive with BP in the 70/50's before any angiograms were obtained requiring intermittent vasopressors. The decision was made to perform PCI of the RCA. A 6Fr AL 0.75 guide was used to engage the RCA. A 0.014 BMW wire was inserted into the distal RCA. Penumbra aspiration thrombectomy was performed x 1 run with resultant imrpovement in ST segments. IVUS was performed which showed reference vessel 2.75mm with diffuse disease throughout entire mid to distal RCA and proximally 3.5mm. A 2.75 x 23mm Xience TERE was placed in the mid RCA. The proximal and mid portions of the stent were post dilated with a 3.5mm NC balloon. Final angiograms were performed. Repeat IVUS was performed which showed excellent stent apposition and no dissection. Preintervention there was TAMMY 0 flow and 100% stenosis and post intervention there was TAMMY 3 flow with 0% stenosis. Patient's BP had improved after intervention. The right radial sheath was removed and a TR band was placed with hemostasis achieved. The patient tolerated the procedure well. Patient was transported back to the post catheterization holding area in stable condition. Conscious Sedation: Patient was monitored under the direct supervision of myself for conscious sedation using Versed and fentanyl for a total duration of 24 minutes HEMODYNAMICS: Ao: 95/60, originally 70/50 on presentation SELECTIVE CORONARY ARTERIOGRAPHY: LEFT MAIN: The left main not imaged, see separate report. LEFT ANTERIOR DESCENDING CORONARY ARTERY: LAD not imaged, see separate report LEFT CIRCUMFLEX CORONARY ARTERY: Left circumflex not imaged, see separate report RIGHT CORONARY ARTERY: The right coronary artery is a large caliber vessel which gives off a PDA and PLV branch and is the dominant vessel. There is 100% proximal RCA stenosis with otherwise diffuse 20-30% mid and distal RCA stenosis FINAL IMPRESSION: 1. CAD as described above with 100% RCA stenosis 2. S/p PCI RCA with a 2.75 x 23mm XIence TERE, post dilated with a 3.5mm NC balloon 3. Cardiogenic shock on presentation to the lab support tech, improved after intervention PLAN: 1. Aggressive risk factor modification per most recent ACC/AHA guidelines. 2. Continue dual antiplatelets with aspirin and Brillinta for 12 months 3. Goal LDL < 70 4. Tobacco cessation discussed in detail with patient and patient willing to try. Gave patient information on [place] Quit Line.
--- NOTE | 2025-02-19 23:27 | P.HPIM ---
History of Present Illness H&P Date: 02/19/25 History of present illness; 59-year-old female with no significant past medical history presented to the emergency department for further evaluation of chest pain, dizziness, diaphoresis and shortness of breath. She states that she initially believed that she was having heartburn and took couple of Tums however the pain remained constant. She was at home with her son sitting on the couch, when he noted that she did not look well and stated that he was going to bring her to the emergency department to get further evaluated if she remained this way when he returned from running an errand. The next thing she recalls she was on the floor, having slumped off the couch resulting in an abrasion to her nose. She described the pain as a tightness/heaviness that she rated a 8/10 located substernally with associated palpitations, diaphoresis, dyspnea as well as a sense of impending doom. When seen at bedside, she is in the ICU resting comfortably without any acute complaints. She underwent PCI with the placement of a singular stent in the RCA. Labratory review: - WBCs 13.43, hemoglobin 13.1, hematocrit 38.5, platelet 350; sodium 136, potassium 3.8, bicarb 27, BUN 14, creatinine 0.72, calcium 9.8, magnesium 2.0, total bilirubin 0.3, AST 26, ALT 18, alkaline phosphatase 83 - Troponin 0.065 Imaging: - Chest x-ray done in the ER showed interstitial prominence which could possibly represent pulmonary edema versus fibrotic change - CT brain, C-spine and facial bones show no acute intracranial process, soft tissue swelling over the nasal bone with suspected minimally displaced right nasal bone fracture; no evidence of cervical spine fracture, with mild multilevel degenerative disc disease - EKG done in the ER independently read and interpreted showed heart rate of 53, sinus bradycardia, with noted ST elevations in leads II, III, aVF; QTc 404 Vitals: - On arrival: Blood pressure 150/65, heart rate 83, respiratory 20, SpO2 98% on room air - Most recently: Blood pressure 100/60, heart rate 57, respiratory rate 20, SpO2 98% on room air Patient admitted to internal medicine service REVIEW OF SYSTEMS: Pertinent positives and negatives noted in HPI. The rest of the 14-point review of systems is negative. Physical Exam: General: nontoxic, no distress, appears at stated age Derm: warm, dry, intact Head: atraumatic, normocephalic, symmetric; small well-healing, recent abrasion to the tip of her nose Eyes: EOMI, anicteric sclera Mouth: no lip lesion, mucus membranes moist Cardiovascular: S1 S2 reg, no murmur, rubs, or gallops Lungs: CTA bilateral, no rales, no accessory muscle use Abdominal: soft, non-tender to palpataion, no appreciable organomegaly Extremities: no gross muscle atrophy, no edema, no contractures; small bandage wrapping around right wrist, secondary to right radial approach to PCI Neuro: Alert, Oriented, CNII-XII grossly intact, gait normal Psych: well appearing, appropriate affect Assessment and plan 59-year-old female with no significant past medical history presented to the emergency department for further evaluation of chest pain, dizziness, diaphoresis and shortness of breath. #Acute STEMI - EKG done in the ER independently read and interpreted showed heart rate of 53, sinus bradycardia, with noted ST elevations in leads II, III, aVF; QTc 404 - STEMI alert was called and she was taken to [facility] for PCI; patient received 1 stent to the RCA - Received 180 mg loading dose of Brilinta prior to PCI; will continue with 90 mg twice daily - Continue with aspirin 81 mg daily, metoprolol tartrate 25 mg twice daily and Lipitor 80 mg daily - Cardiology following #Nicotine dependence - She is a current 1/2 pack per day smoker - Counseled on the importance of smoking cessation - Nicotine 21 mg/24-hour patch GI prophylaxis:None DVT prophylaxis: Lovenox 40 mg SQ daily The patient is admitted with an anticipated more than than 2 midnight stay for evaluation of STEMI s/p PCI. CODE STATUS: Full code Discussed with: Patient Anticipated discharge place: Home Dictation was produced using Loco2 dictation software. please excuse any grammatical, word or spelling errors. Arnulfo Noe MD PGY-1 IM I have seen and evaluated the patient today. I Discussed the case with the resident and agree with the resident's findings I edited the assessment and plan as necessary as documented in the resident's note. Past Medical History Past Medical History: No Reported History Additional Past Medical History / Comment(s): SEASONAL ALLERGIES., RIGHT and Left INGUINAL HERNIA. History of Any Multi-Drug Resistant Organisms: None Reported Past Surgical History: Tubal Ligation, Uterine Ablation Additional Past Surgical History / Comment(s): BONE SPUR LEFT HAND, LEFT INGUINAL HERNIA (03/26/16) Past Anesthesia/Blood Transfusion Reactions: No Reported Reaction, Family History of Problems w/ Anesthesia Additional Past Anesthesia/Blood Transfusion Reaction / Comment(s): MOTHER & SISTER=PONV Past Psychological History: No Psychological Hx Reported Past Alcohol Use History: None Reported Past Drug Use History: Marijuana - Past Family History Father Family Medical History: Cancer, Deep Vein Thrombosis (DVT) Additional Family Medical History / Comment(s): THORACIC CANCER Medications and Allergies Home Medications Medication Instructions Recorded Confirmed Type Ibuprofen 800 mg PO Q6HR PRN #20 tablet 07/24/19 02/20/25 Rx Gabapentin [Neurontin] 300 mg PO TID PRN 02/20/25 02/20/25 History HYDROcodone/APAP 5-325MG [[place] 1 tab PO BID PRN 02/20/25 02/20/25 History 5-325] Unknown Lidocaine Combination Cream 1 applic TOPICAL DIRECTED PRN 02/20/25 02/20/25 History Allergies Allergy/AdvReac Type Severity Reaction Status Date / Time cortisone Allergy Unknown Swelling Verified 02/20/25 11:43 Physical Exam Vitals: Vital Signs Temp Pulse Pulse Resp BP Pulse Ox 02/19/25 20:50 94.7 F L 63 6 L 127/81 95 02/19/25 20:43 83 11 L 02/19/25 19:08 57 L 20 100/60 98 02/19/25 18:50 56 L 02/19/25 18:48 48 L 20 100/60 96 02/19/25 18:45 98 F 83 20 95/65 98 Intake and Output 02/19/25 02/19/25 02/19/25 06:59 14:59 22:59 Intake Total 713 Balance 713 Intake: IV 713 Other: Weight 54.431 kg Results CBC & Chem 7: 02/20/25 05:15 02/20/25 05:15 Labs: Abnormal Lab Results - Last 24 Hours (Table) 02/19/25 02/19/25 02/19/25 Range/Units 18:30 18:30 18:30 WBC 13.43 H (4.50-10.00) 10*3/uL Lymphocytes # 6.70 H (0.90-5.00) 10*3/uL Basophils # 0.13 H (0.00-0.10) 10*3/uL Sodium 136 L (137-145) mmol/L Glucose 111 H (74-99) mg/dL POC Glucose (mg/dL) (70-110) mg/dL Troponin I 0.065 H* (0.000-0.034) ng/mL 02/19/25 Range/Units 20:42 WBC (4.50-10.00) 10*3/uL Lymphocytes # (0.90-5.00) 10*3/uL Basophils # (0.00-0.10) 10*3/uL Sodium (137-145) mmol/L Glucose (74-99) mg/dL POC Glucose (mg/dL) 127 H (70-110) mg/dL Troponin I (0.000-0.034) ng/mL
[2025-02-20] MEDS: MAG HYDROX/AL HYDROX/SIMETH 30 ML CUP PO PRN (00:59)
[2025-02-20 06:11] LABS: Basophils # (A) 0.06 10*3/uL (0.00-0.10); Basophils % (A) 0.5 %; Eosinophils # (A) 0.08 10*3/uL (0.04-0.35); Eosinophils % (A) 0.7 %; HCT 37.1 % (37.2-46.3); Lymphocytes # (A) 3.95 10*3/uL (0.90-5.00); Lymphocytes % (A) 32.8 %; MCH 29.6 pg (27.0-32.0); MCHC 32.3 g/dL (32.0-37.0); MCV 91.4 fL (80.0-97.0); Mean Platelet Volume 9.8 fL (9.5-12.2); Monocytes # (A) 0.91 10*3/uL (0.20-1.00); Monocytes % (A) 7.6 %; Neutrophils # (A) 6.99 10*3/uL (1.80-7.70); Neutrophils % (A) 58.1 %; Platelet Count 296 10*3/uL (140-440); RBC 4.06 10*6/uL (4.10-5.20); RDW 12.7 % (11.5-14.5); WBC 12.03 10*3/uL (4.50-10.00)
[2025-02-20 06:32] LABS: African American GFR (CKD) >90 (>60 ml/min/1.73 sqM); Anion Gap 3 mmol/L; Blood Urea Nitrogen 13 mg/dL (7-17); Calcium 9.6 mg/dL (8.4-10.2); Carbon Dioxide 29 mmol/L (22-30); Chloride 105 mmol/L (98-107); Glucose 101 mg/dL (74-99); Non-African American GFR(CKD) >90 (>60 ml/min/1.73 sqM); Potassium 4.4 mmol/L (3.5-5.1); Sodium 137 mmol/L (137-145)
[2025-02-20] MEDS: ENOXAPARIN 40 MG/0.4 ML SYRINGE SQ SCH (08:52)
[2025-02-20] MEDS: ASPIRIN 81 MG PO SCH (08:52)
[2025-02-20] MEDS: TICAGRELOR 90 MG TAB PO SCH (08:52)
[2025-02-20] MEDS ORDERED: ASPIRIN 325 MG TAB PO SCH (09:00)
[2025-02-20 09:31] LABS: Chol/HDL Ratio 5.42 Ratio; LDL Cholesterol,Calculated 123.3 mg/dL (0.0-131.0)
[2025-02-20] MEDS: METOPROLOL TARTRATE 12.5 MG TAB PO SCH (09:32)
--- NOTE | 2025-02-20 09:33 | PN ---
PROGRESS NOTE FOLLOWUP NOTE SUBJECTIVE: A 59-year-old lady, who presented to hospital yesterday with acute inferior wall myocardial infarction, underwent emergent cardiac catheterization and angioplasty of the totally occluded proximal right coronary artery. She had a fall and had soft tissue injury to her face, however, a CT scan of the head did not reveal any acute intracranial process. The patient has a minor injury to the nose, which is to be addressed by the primary care physician. This morning, the patient is doing well and is free of symptoms. OBJECTIVE: VITAL SIGNS: Heart rate is around 50 beats per minute, blood pressure is 125/78, respiratory rate 18, and O2 saturation is 96%. NECK: There is no jugular venous distention. Carotid upstroke is normal. There is no bruit. CHEST: Reveals good air entry bilaterally. HEART: Reveals first and second heart sounds. No gallop. No murmur. ABDOMEN: Soft. EXTREMITIES: Exam of extremities did not reveal any edema. Peripheral pulses are felt. LABORATORY DATA: Show that the hemoglobin is 12, platelet count is 296. Potassium is 4.4, creatinine is 0.5. Troponin was 0.06, 7.6 and 26. ASSESSMENT: Acute inferior wall myocardial infarction, status post catheterization and angioplasty. PLAN: We will cut back on the dose of metoprolol, transfer her out of ICU, obtain a 2D echo in the morning. ELLIE / TAIWON: [id number] /
--- NOTE | 2025-02-20 10:49 | P.PN ---
Subjective Progress Note Date: 02/20/25 59 year old F with no significant PMH presents to the ED for chest pain. She underwent extensive evaluation in the ED. Blood pressure 150/65, heart rate 83, respiratory 20, SpO2 98% on room air. WBCs 13.43, hemoglobin 13.1, hematocrit 38.5, platelet 350; sodium 136, potassium 3.8, bicarb 27, BUN 14, creatinine 0.72, calcium 9.8, magnesium 2.0, total bilirubin 0.3, AST 26, ALT 18, alkaline phosphatase 83. Troponin 0.065, 7.62, 26.3. Chest x-ray done in the ER showed interstitial prominence which could possibly represent pulmonary edema versus fibrotic change. CT brain, C-spine and facial bones show no acute intracranial process, soft tissue swelling over the nasal bone with suspected minimally disp laced right nasal bone fracture; no evidence of cervical spine fracture, with mild multilevel degenerative disc disease. EKG done in the ER showed heart rate of 53, sinus bradycardia, with noted ST elevations in leads II, III, aVF; QTc 404. Patient was started on heparin drip and taken to the [facility]. She underwent cardiac cath and TERE in the RCA. 02/20 Patient was seen and examined. Reports no chest pain. CBC and BMP significant for WBC 12.03, RBC 4.06, Hct 37.1, glu 101. Lipid panel TG 256, T. Chol 214, LDL 123, HDL 39.5. General: no distress, appears at stated age Derm: warm, dry Head: atraumatic, normocephalic, symmetric Mouth: no lip lesion, mucus membranes moist Cardiovascular: S1S2 johnnie. No murmurs. Lungs: Decreased BS bilaterally, no accessory muscle use Ext: no gross muscle atrophy, no edema, no contractures Neuro: No focal neurologic deficits. Psych: Alert and oriented. Based on my assessment of this patient, this patient meets a high complexity level of care. STEMI: ASA 81 mg PO QD. Lipitor 80 mg PO QD. Brilinta 90 mg PO BID. Metoprolol 12.5 mg PO BID. Obtain Echo. Telemetry monitoring. Cardiology on board. Sinus bradycardia: Likely due to RCA involvement. Monitor while on Metoprolol. Cardiology on board. Leukocytosis: Likely reactive with no signs of active infection. Monitor fever profile. Dyslipidemia: Lipitor as above. Nicotine dependence: Advised to quit. Nicotine patch if needed. CODE STATUS: FULL CODE DVT Prophylaxis: Lovenox SQ GI Prophylaxis: Designated medical POA if patient is not able to make medical decisions for themselves: I have reviewed the following web consultant notes: Cardiac cath note. I have reviewed the results of the following tests: CBC, BMP, Lipid. I have ordered the following tests: I have discussed the care of this patient with the following independent historian: I have independently interpreted the following test below: I have discussed the management of this patient with the following physician: Objective - Vital Signs Vital signs: Vital Signs Temp 98 F 02/20/25 09:03 Pulse 55 L 02/20/25 10:00 Resp 22 02/20/25 10:00 BP 109/88 02/20/25 10:00 Pulse Ox 93 L 02/20/25 10:00 FiO2 Intake & Output 02/19/25 02/20/25 02/20/25 18:59 06:59 18:59 Intake Total 1023 615 Output Total 550 500 Balance 473 115 Weight 54.431 kg 55.3 kg Intake: IV 1023 75 Sodium Chloride 0.9% 1, 310 75 000 ml In Empty Bag 1 bag @ 1 ML/KG/HR 54.431 mls/ hr IV .[id number] JOHN Rx#: [id number] Oral 540 Output: Urine 550 500 Other: Voiding Method Bedside Commode Toilet # Voids 0 0 - Labs CBC & Chem 7: 02/20/25 05:15 02/20/25 05:15 Labs: Abnormal Lab Results - Last 24 Hours (Table) 02/19/25 02/19/25 02/19/25 Range/Units 18:30 18:30 18:30 WBC 13.43 H (4.50-10.00) 10*3/uL RBC (4.10-5.20) 10*6/uL Hct (37.2-46.3) % Lymphocytes # 6.70 H (0.90-5.00) 10*3/uL Basophils # 0.13 H (0.00-0.10) 10*3/uL Sodium 136 L (137-145) mmol/L Glucose 111 H (74-99) mg/dL POC Glucose (mg/dL) (70-110) mg/dL Troponin I 0.065 H* (0.000-0.034) ng/mL Triglycerides (0.00-149.00) mg/dL Cholesterol (0.00-200.00) mg/dL VLDL Cholesterol, Calc (5.00-40.00) mg/dL HDL Cholesterol (40.00-60.00) mg/dL 02/19/25 02/19/25 02/20/25 Range/Units 20:42 21:28 00:37 WBC (4.50-10.00) 10*3/uL RBC (4.10-5.20) 10*6/uL Hct (37.2-46.3) % Lymphocytes # (0.90-5.00) 10*3/uL Basophils # (0.00-0.10) 10*3/uL Sodium (137-145) mmol/L Glucose (74-99) mg/dL POC Glucose (mg/dL) 127 H (70-110) mg/dL Troponin I 7.620 H* 26.300 H* (0.000-0.034) ng/mL Triglycerides (0.00-149.00) mg/dL Cholesterol (0.00-200.00) mg/dL VLDL Cholesterol, Calc (5.00-40.00) mg/dL HDL Cholesterol (40.00-60.00) mg/dL 02/20/25 02/20/25 02/20/25 Range/Units 05:15 05:15 05:15 WBC 12.03 H (4.50-10.00) 10*3/uL RBC 4.06 L (4.10-5.20) 10*6/uL Hct 37.1 L (37.2-46.3) % Lymphocytes # (0.90-5.00) 10*3/uL Basophils # (0.00-0.10) 10*3/uL Sodium (137-145) mmol/L Glucose 101 H (74-99) mg/dL POC Glucose (mg/dL) (70-110) mg/dL Troponin I (0.000-0.034) ng/mL Triglycerides 256.00 H (0.00-149.00) mg/dL Cholesterol 214.00 H (0.00-200.00) mg/dL VLDL Cholesterol, Calc 51.20 H (5.00-40.00) mg/dL HDL Cholesterol 39.50 L (40.00-60.00) mg/dL
--- NOTE | 2025-02-21 12:35 | CA ---
Transthoracic Echo Report Name: Abby Edmondson Age: 59 Gender: F : 1965 Exam Date: 02/21/2025 10:07 Exam Location: [facility] Ht (in): 59 Wt (lb): 121 Ordering Physician: Kaity Saleh Attending/Referring Phys: [id number], [employer] Luly Peters RDCS Procedure CPT: Indications: stemi Cardiac Hx: Stent x1 Technical Quality: Good Contrast 1: Total Dose (mL): Contrast 2: Total Dose (mL): MEASUREMENTS (Male / Female) Normal Values 2D ECHO LV Diastolic Diameter PLAX 4.3 cm 4.2 - 5.9 / 3.9 - 5.3 cm LV Systolic Diameter PLAX 2.9 cm IVS Diastolic Thickness 0.8 cm 0.6 - 1.0 / 0.6 - 0.9 cm LVPW Diastolic Thickness 1.0 cm 0.6 - 1.0 / 0.6 - 0.9 cm LV Relative Wall Thickness 0.4 LVOT Diameter 2.0 cm Aortic Root Diameter 2.8 cm LV Diastolic Volume MOD BP 61.9 cm??? 67 - 155 / 56 - 104 cm??? LV Systolic Volume MOD BP 24.2 cm??? 22 - 58 / 19 - 49 cm??? LV Ejection Fraction MOD BP 60.9 % >= 55 % LV Cardiac Index MOD BP 1434.8 cm???/min???m??? LV Diastolic Volume MOD 4C 65.7 cm??? LV Systolic Volume MOD 4C 25.6 cm??? LV Ejection Fraction MOD 4C 61.1 % LV Cardiac Index MOD 4C 1528.3 cm???/min???m??? LV Diastolic Length 4C 7.4 cm LV Systolic Length 4C 5.9 cm LV Diastolic Volume MOD 2C 55.0 cm??? LV Systolic Volume MOD 2C 20.7 cm??? LV Ejection Fraction MOD 2C 62.3 % LV Cardiac Index MOD 2C 1304.9 cm???/min???m??? LV Diastolic Length 2C 6.9 cm LV Systolic Length 2C 5.3 cm Ascending Aorta Diameter 2.9 cm DOPPLER AV Peak Velocity 155.0 cm/s AV Peak Gradient 9.6 mmHg AV Mean Velocity 94.8 cm/s AV Mean Gradient 4.2 mmHg AV Velocity Time Integral 30.0 cm LVOT Peak Velocity 103.5 cm/s LVOT Peak Gradient 4.3 mmHg LVOT Velocity Time Integral 20.4 cm LVOT Stroke Volume 64.7 cm??? LVOT Stroke Volume Index 43.4 ml/m??? LVOT Cardiac Index 2461.7 cm???/min???m??? AV Area Cont Eq vti 2.2 cm??? AV Area Cont Eq pk 2.1 cm??? Mitral E Point Velocity 54.6 cm/s Mitral A Point Velocity 48.1 cm/s Mitral E to A Ratio 1.1 MV Deceleration Time 176.1 ms MV E' Velocity 5.4 cm/s Mitral E to MV E' Ratio 10.0 TR Peak Velocity 239.6 cm/s TR Peak Gradient 23.0 mmHg Right Atrial Pressure 5.0 mmHg Pulmonary Artery Systolic Pressu 28.0 mmHg Right Ventricular Systolic Press 28.0 mmHg PV Peak Velocity 82.1 cm/s PV Peak Gradient 2.7 mmHg FINDINGS Left Ventricle Left ventricular ejection fraction is estimated at 55-60 %. Left ventricular cavity size normal. Left ventricular wall thickness normal. No obvious regional wall motion abnormalities. Right Ventricle Normal right ventricular size and function. Right ventricular systolic pressure within normal limits. Right Atrium Normal right atrial size. Left Atrium Normal left atrial size. Mitral Valve Structurally normal mitral valve. No evidence for mitral valve prolapse. No mitral stenosis. Mild mitral regurgitation. Aortic Valve Trileaflet aortic valve. No aortic valve stenosis or regurgitation. Tricuspid Valve Structurally normal tricuspid valve. No tricuspid stenosis. Mild tricuspid regurgitation. Pulmonic Valve Pulmonic valve not well visualized. No pulmonic stenosis. No pulmonic regurgitation. Pericardium No pericardial effusion. Echo free space anterior to the right ventricle likely represents a fat pad. Aorta Normal size aortic root and proximal ascending aorta. CONCLUSIONS Left ventricular ejection fraction 55 to 60% RVSP 28 Mild mitral regurgitation Mild tricuspid regurgitation No pericardial effusion Previewed by: Dr. Vaibhav Fallon DO (Electronically Signed) Final Date: 21 February 2025 12:34
--- NOTE | 2025-02-21 12:52 | P.PN ---
Subjective Progress Note Date: 02/21/25 This is a 59-year-old female presented to the hospital with acute inferior wall myocardial infarction and underwent emergent cardiac catheterization and angioplasty of a totally occluded proximal right coronary artery. Patient did have a fall with soft tissue injury to her face. CAT scan of the head did not reveal any acute intracranial process. Patient has been transferred out of the intensive care unit seen today on the cardiac stepdown unit. She denies chest pain or chest pressure. She denies shortness of breath. No lightheadedness or dizziness. She does state that the nurse came in to see her last night because it was reported her heart rate was in the 30s. Patient was asymptomatic. Y beta-gale was cut in half. Upon review, patient did have some bradycardia and a 2.5-second pause. Blood pressure 143/79, heart rate 62, pulse ox 98% on room air. Echocardiogram is pending. Physical examination: Gen: This is a 59-year-old female in no acute distress VS: reviewed HEENT: Significant ecchymosis to the face, normocephalic. Pupils equal, round. Sclerae is anicteric. NECK: Supple. No JVD. Carotid upstroke is normal. No bruit. LUNGS: Good air entry bilaterally. No intercostal retractions. HEART: Regular rate and rhythm. No murmur. No gallop. ABDOMEN: Soft EXTREMITIES: No pedal edema. Dorsalis pedis palpable bilaterally NEUROLOGICAL: Patient is awake, alert and oriented x3. Assessment: Acute inferior wall myocardial infarction s/p cardiac catheterization in angioplasty of the RCA Plan: Continue patient on: Aspirin 81 mg daily, atorvastatin 80 mg daily, Brilinta 90 mg twice daily Continue patient on atorvastatin 80 mg daily with LDL goal less than 70 Discontinue metoprolol due to bradycardia and sinus pauses Smoking cessation. Continue patient on nicotine patch and she will be provided the [place] quit line information at discharge Obtain 2-D echocardiogram and Doppler study to assess cardiac structure and function Further recommendations to follow based upon clinical course Nurse practitioner note has been reviewed, I agree with documented findings and plan of care. Patient was seen and examined. Objective - Vital Signs Vital signs: Vital Signs Temp 97.6 F 02/21/25 04:00 Pulse 55 L 02/21/25 04:00 Resp 18 02/21/25 04:00 BP 136/78 02/21/25 04:00 Pulse Ox 95 02/21/25 04:00 FiO2 Intake & Output 02/20/25 02/21/25 02/21/25 18:59 06:59 18:59 Intake Total 855 20 Output Total 500 Balance 355 20 Weight 51.1 kg Intake: IV 75 20 Invasive Line 2 20 Sodium Chloride 0.9% 1, 75 000 ml In Empty Bag 1 bag @ 1 ML/KG/HR 54.431 mls/ hr IV .[id number] [facility] Rx#: [id number] Oral 780 Output: Urine 500 Other: Voiding Method Toilet Toilet # Voids 1 1 - Labs CBC & Chem 7: 02/20/25 05:15 02/20/25 05:15 Labs: Abnormal Lab Results - Last 24 Hours (Table) 02/20/25 Range/Units 05:15 Triglycerides 256.00 H (0.00-149.00) mg/dL Cholesterol 214.00 H (0.00-200.00) mg/dL VLDL Cholesterol, Calc 51.20 H (5.00-40.00) mg/dL HDL Cholesterol 39.50 L (40.00-60.00) mg/dL
[2025-02-21 15:30] VITALS: BMI 22.7
--- NOTE | 2025-02-21 15:54 | P.PN ---
Subjective Progress Note Date: 02/21/25 Hospital Course: 59 year old F with no significant PMH presents to the ED for chest pain. She u nderwent extensive evaluation in the ED. Blood pressure 150/65, heart rate 83, respiratory 20, SpO2 98% on room air. WBCs 13.43, hemoglobin 13.1, hematocrit 38.5, platelet 350; sodium 136, potassium 3.8, bicarb 27, BUN 14, creatinine 0.72, calcium 9.8, magnesium 2.0, total bilirubin 0.3, AST 26, ALT 18, alkaline phosphatase 83. Troponin 0.065, 7.62, 26.3. Chest x-ray done in the ER showed interstitial prominence which could possibly represent pulmonary edema versus fibrotic change. CT brain, C-spine and facial bones show no acute intracranial process, soft tissue swelling over the nasal bone with suspected minimally displaced right nasal bone fracture; no evidence of cervical spine fracture, with mild multilevel degenerative disc disease. EKG done in the ER showed heart rate of 53, sinus bradycardia, with noted ST elevations in leads II, III, aVF; QTc 404. 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 She underwent cardiac cath and TERE in the RCA. Lipid panel TG 256, T. Chol 214, LDL 123, HDL 39.5.. Started on Brilinta 90 mg twice daily, continued on aspirin 81 mg daily, atorvastatin 80 mg daily, her metoprolol was discontinued due to bradycardia and sinus pauses. TTE showed EF of 55 to 60%, RVSP 28, mild MR and TR. 02/21: Seen and examined at bedside, denies chest pain, shortness of breath, ambulates independently, has adequate oral intake. Possible discharge within the next 24 hours. Heart rate in 50s, blood pressure 133/77. Discussed with RN Pertinent positives and negatives as discussed above, a complete review of systems was performed and all other systems are negative. Vitals Signs Reviewed. General: [nontoxic], [no distress], [appears at stated age] Derm: [warm], [dry] Head: [Bruising and ecchymosis to the face] Eyes: [EOMI], [no lid lag], [anicteric sclera] Mouth: [no lip lesion], [mucus membranes moist] Cardiovascular: [S1S2 reg], [no murmur] Lungs: [CTA bilateral], [no rhonchi, no rales] , [no accessory muscle use] Abdominal: [soft], [ nontender to palpation], [no guarding], [no appreciable organomegaly] Ext: [no gross muscle atrophy], [no edema], [no contractures] Neuro: [ CN II-XI grossly intact], [no focal neuro deficits] Psych: [Alert], [oriented], [appropriate affect] Assessment and Plan: STEMI -ASA 81 mg PO QD. Lipitor 80 mg PO QD. Brilinta 90 mg PO BID -Metoprolol 12.5 mg PO BID was discontinued due to sinus pauses. - TTE as above -Telemetry monitoring. Cardiology on board. Sinus bradycardia and sinus pauses: Likely due to RCA involvement. Metoprolol discontinued. Cardiology on board. Leukocytosis: Likely reactive with no signs of active infection. Monitor fever profile. Dyslipidemia: Lipitor as above. Nicotine dependence: Advised to quit. Nicotine patch if needed. CODE STATUS: FULL CODE DVT Prophylaxis: Lovenox SQ Anticipated discharge place: Home Anticipated discharge time: 02/22 Objective - Vital Signs Vital signs: Vital Signs Temp 97.8 F 02/21/25 12:00 Pulse 56 L 02/21/25 14:00 Resp 18 02/21/25 14:00 BP 133/77 02/21/25 12:00 Pulse Ox 98 02/21/25 12:00 FiO2 Intake & Output 02/20/25 02/21/25 02/21/25 18:59 06:59 18:59 Intake Total 855 20 20 Output Total 500 Balance 355 20 20 Weight 51.1 kg 51.1 kg Intake: IV 75 20 20 Invasive Line 2 20 20 Sodium Chloride 0.9% 1, 75 000 ml In Empty Bag 1 bag @ 1 ML/KG/HR 54.431 mls/ hr IV .[id number] [facility] Rx#: [id number] Oral 780 Output: Urine 500 Other: Voiding Method Toilet Toilet Toilet # Voids 1 1 1 - Labs CBC & Chem 7: 02/20/25 05:15 02/20/25 05:15
[2025-02-22 07:43] VITALS: BP 146/82; PULSE 68; RESP 18; TEMP 97.4
[2025-02-22] MEDS: LOSARTAN 25 MG TAB PO SCH (09:52)
--- NOTE | 2025-02-22 11:08 | P.PN ---
Subjective Progress Note Date: 02/22/25 This is a 59-year-old female presented to the hospital with acute inferior wall myocardial infarction and underwent emergent cardiac catheterization and angioplasty of a totally occluded proximal right coronary artery. Patient did have a fall with soft tissue injury to her face. CAT scan of the head did not reveal any acute intracranial process. Patient has been transferred out of the intensive care unit seen today on the cardiac stepdown unit. She denies chest pain or chest pressure. She denies shortness of breath. No lightheadedness or dizziness. She does state that the nurse came in to see her last night because it was reported her heart rate was in the 30s. Patient was asymptomatic. Y beta-gale was cut in half. Upon review, patient did have some bradycardia and a 2.5-second pause. Blood pressure 143/79, heart rate 62, pulse ox 98% on room air. Echocardiogram is pending. 02/22/2025 Patient seen and examined. Patient states she is feeling well this morning and is anxious to go home today. She denies having chest pain or chest pressure no chest tightness. No shortness of breath. Echocardiogram results reviewed with the patient. Blood pressure 146/82, heart rate 68, pulse ox 97% on room air. Echocardiogram reveals Physical examination: Gen: This is a 59-year-old female in no acute distress VS: reviewed HEENT: Significant ecchymosis to the face, normocephalic. Pupils equal, round. Sclerae is anicteric. NECK: Supple. No JVD. Carotid upstroke is normal. No bruit. LUNGS: Good air entry bilaterally. No intercostal retractions. HEART: Regular rate and rhythm. No murmur. No gallop. ABDOMEN: Soft EXTREMITIES: No pedal edema. Dorsalis pedis palpable bilaterally NEUROLOGICAL: Patient is awake, alert and oriented x3. Assessment: Acute inferior wall myocardial infarction s/p cardiac catheterization in angioplasty of the RCA Plan: Continue patient on: Aspirin 81 mg daily, atorvastatin 80 mg daily, Brilinta 90 mg twice daily Continue patient on atorvastatin 80 mg daily with LDL goal less than 70 Discontinue metoprolol due to bradycardia and sinus pauses Losartan added this morning at 25 mg daily Smoking cessation was discussed at the bedside with the patient, continue nicotine patch and she will be provided the [employer] quit line information at discharge Patient is cleared for discharge from a cardiology perspective. Patient will follow-up with Dr. Vásquez in 2 weeks. New cardiac prescriptions have been sent to her pharmacy. Nurse practitioner note has been reviewed, I agree with documented findings and plan of care. Patient was seen and examined. Objective - Vital Signs Vital signs: Vital Signs Temp 97.4 F L 02/22/25 07:43 Pulse 68 02/22/25 07:43 Resp 18 02/22/25 07:43 BP 146/82 02/22/25 07:43 Pulse Ox 97 02/22/25 07:43 FiO2 Intake & Output 02/21/25 02/22/25 02/22/25 18:59 06:59 18:59 Intake Total 20 20 240 Output Total 600 Balance 20 20 -360 Weight 51.1 kg 50.4 kg Intake: IV 20 20 Invasive Line 2 20 20 Oral 240 Output: Urine 600 Other: Voiding Method Toilet Toilet Toilet # Voids 2 1 1 - Labs CBC & Chem 7: 02/20/25 05:15 02/20/25 05:15
--- NOTE | 2025-02-22 11:51 | P.DS ---
Providers Date of admission: 02/19/25 18:47 Attending physician: Nikole Joe MD Consults: 02/19/25 18:47 Consult Physician Urgent Consulting Provider: Aruna Ahn Consult Reason/Comments: stemi Do you want consulting provider notified?: Yes 02/19/25 21:18 Consult Physician Routine Consulting Provider: [facility] Consult Reason/Comments: Post Interventional Patient Do you want consulting provider notified?: Already Contacted Primary care physician: [facility] Course: Discharge Diagnosis: [] Hospital Course: 59 year old F with no significant PMH presents to the ED for chest pain. She underwent extensive evaluation in the ED. Blood pressure 150/65, heart rate 83, respiratory 20, SpO2 98% on room air. WBCs 13.43, hemoglobin 13.1, hematocrit 38 .5, platelet 350; sodium 136, potassium 3.8, bicarb 27, BUN 14, creatinine 0.72, calcium 9.8, magnesium 2.0, total bilirubin 0.3, AST 26, ALT 18, alkaline phosphatase 83. Troponin 0.065, 7.62, 26.3. Chest x-ray done in the ER showed interstitial prominence which could possibly represent pulmonary edema versus fibrotic change. CT brain, C-spine and facial bones show no acute intracranial process, soft tissue swelling over the nasal bone with suspected minimally displaced right nasal bone fracture; no evidence of cervical spine fracture, with mild multilevel degenerative disc disease. EKG done in the ER showed heart rate of 53, sinus bradycardia, with noted ST elevations in leads II, III, aVF; QTc 404. 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 She underwent cardiac cath and TERE in the RCA. Lipid panel TG 256, T. Chol 214, LDL 123, HDL 39.5.. Started on Brilinta 90 mg twice daily, continued on aspirin 81 mg daily, atorvastatin 80 mg daily, her metoprolol was discontinued due to bradycardia and sinus pauses. TTE showed EF of 55 to 60%, RVSP 28, mild MR and TR. CXR 02/22: No acute complaints, feels well and ready for discharge. Discussed with cardiology, patient is cleared, she will be sent home on aspirin and Brilinta, atorvastatin 80 mg, metoprolol was discontinued due to bradycardia as above and patient was started on losartan 25 daily instead. Patient to follow- up with PCP and cardiology, smoking cessation strongly recommended, resources provided in the AVS. Patient seen and examined at bedside.[] Vital signs reviewed and stable. General: [nontoxic], [no distress], [appears at stated age] Derm: [warm], [dry] Head: [Bruising and ecchymosis to the face] Eyes: [EOMI], [no lid lag], [anicteric sclera] Mouth: [no lip lesion], [mucus membranes moist] Cardiovascular: [S1S2 reg], [no murmur] Lungs: [CTA bilateral], [no rhonchi, no rales] , [no accessory muscle use] Abdominal: [soft], [ nontender to palpation], [no guarding], [no appreciable organomegaly] Ext: [no gross muscle atrophy], [no edema], [no contractures] Neuro: [ CN II-XI grossly intact], [no focal neuro deficits] Psych: [Alert], [oriented], [appropriate affect] A total of 40 minutes of time were spent preparing this complex discharge summary. Patient was discharged on 02/22/2025. Patient Condition at Discharge: Serious Plan - Discharge Summary New Discharge Prescriptions: New Losartan [Cozaar] 25 mg PO DAILY #90 tab Atorvastatin [Lipitor] 80 mg PO DAILY #90 tab Nitroglycerin Sl Tabs [Nitrostat] 0.4 mg SUBLINGUAL Q5M PRN #25 tab PRN Reason: Chest Pain Aspirin 81 mg PO DAILY tab Ticagrelor [Brilinta] 90 mg PO BID #180 tab Continue HYDROcodone/APAP 5-325MG [[place] 5-325] 1 tab PO BID PRN PRN Reason: Pain Gabapentin [Neurontin] 300 mg PO TID PRN PRN Reason: Pain Discontinued Ibuprofen 800 mg PO Q6HR PRN #20 tablet PRN Reason: Pain Lidocaine 4%/Menthol 1% Topical Gel 1 applic TOPICAL TID PRN PRN Reason: Pain Discharge Medication List Gabapentin [Neurontin] 300 mg PO TID PRN 02/20/25 [History] HYDROcodone/APAP 5-325MG [[place] 5-325] 1 tab PO BID PRN 02/20/25 [History] Aspirin 81 mg PO DAILY tab 02/22/25 [Rx] Atorvastatin [Lipitor] 80 mg PO DAILY #90 tab 02/22/25 [Rx] Losartan [Cozaar] 25 mg PO DAILY #90 tab 02/22/25 [Rx] Nitroglycerin Sl Tabs [Nitrostat] 0.4 mg SUBLINGUAL Q5M PRN #25 tab 02/22/25 [Rx] Ticagrelor [Brilinta] 90 mg PO BID #180 tab 02/22/25 [Rx] Follow up Appointment(s)/Referral(s): Krystle Sampson MD [Primary Care Provider] - 1-2 days Rakesh Vásquez MD [STAFF PHYSICIAN] - 2 Weeks Discharge Disposition: HOME SELF-CARE
== END 2025-02-22 13:20 | disposition home or self-care (01) | DRG 174 ==
LOC: EC 18:43 → 2SICU 18:47 → 3SCARD 02-20 10:41
PROVIDERS: ADMIT Internal Medicine; ATTEND Internal Medicine
PROC: B2111ZZ Fluoroscopy of Multiple Coronary Arteries using Low Osmolar Contrast (ICD-10-PCS; 2025-02-19)
PROC: 3E033XZ Introduction of Vasopressor into Peripheral Vein, Percutaneous Approach (ICD-10-PCS; 2025-02-19)
PROC: 027034Z Dilation of Coronary Artery, One Artery with Drug-eluting Intraluminal Device, Percutaneous Approach (ICD-10-PCS; principal; 2025-02-19 19:07)
PROC: 02C03ZZ Extirpation of Matter from Coronary Artery, One Artery, Percutaneous Approach (ICD-10-PCS; 2025-02-19 19:07)
PROC: 6A750ZZ Ultrasound Therapy, Circulatory, Single (ICD-10-PCS; 2025-02-19 19:07)
PROC: 4A023N7 Measurement of Cardiac Sampling and Pressure, Left Heart, Percutaneous Approach (ICD-10-PCS; 2025-02-19 19:07)
DX: I21.19 ST elevation (STEMI) myocardial infarction involving other coronary artery of inferior wall (principal); R57.0 Cardiogenic shock; S00.31XA Abrasion of nose, initial encounter; I25.10 Atherosclerotic heart disease of native coronary artery without angina pectoris; S02.2XXA Fracture of nasal bones, initial encounter for closed fracture; F17.210 Nicotine dependence, cigarettes, uncomplicated; E78.5 Hyperlipidemia, unspecified; D72.829 Elevated white blood cell count, unspecified; W19.XXXA Unspecified fall, initial encounter; Z71.6 Tobacco abuse counseling
CPT/HCPCS: 36415; 70450; 70486; 71045; 72125; 80048; 80053; 80061; 83735; 84484; 85025; 85610; 85730; 92973; 92978; 93005; 93306; 93458; 96374; 99291

== ENCOUNTER → 2025-03-21 | Outpatient (CLI) | payer OTHER ==
[2025-03-21 15:52] LABS: ALT 39 U/L (8-44); AST 41 U/L (13-35); Cholesterol 168.00 mg/dL (0.00-200.00); HDL Cholesterol 42.80 mg/dL (40.00-60.00); LDL Cholesterol,Calculated 104.0 mg/dL (0.0-131.0); Triglycerides 106.00 mg/dL (0.00-149.00); VLDL Calculation 21.20 mg/dL (5.00-40.00)
== END | disposition home or self-care (01) ==
LOC: LABWHC1 08:38
PROVIDERS: ATTEND Internal Medicine Cardiovascular Disease
DX: E78.2 Mixed hyperlipidemia (principal)
CPT/HCPCS: 36415; 80061; 84450; 84460